=== PATIENT | male | born 1980 | race Caucasian/White ===

== ENCOUNTER 2020-04-26 11:23 | Emergency (ER) | payer OTHER ==
[2020-04-26] MEDS ORDERED: Sodium Chloride 0.9% 1000 ML 1,000 ML IV STA (11:32)
[2020-04-26] MEDS ORDERED: Sodium Chloride 0.9% 1000 ML 1,000 ML ONE (11:39)
--- NOTE | 2020-04-26 11:53 | ERPHSYRPT ---
- History of Present Illness Time Seen by Provider: 04/26/20 11:30 Source: patient Exam Limitations: no limitations Patient Subjective Stated Complaint: possible syncopal episode/ possible seizure activity Triage Nursing Assessment: pt to ED by EMS after possible seizure like activity and syncopal episode. pt states he was fasting for 12 hr and had blood drawn at routine check up. LOC immediately after blood draw. EMS reports that staff who witnessed episode stated that pt became bradycardic to 30s BPM. pt states he was not aware of episode during, but "came to" well after and has not been postdictal since. A&Ox4 on arrival. Physician History: Patient is a 39-year-old male presents to our ED via EMS for evaluation of syncope during blood draw. Patient was having a blood draw for routine work physical. Patient has been fasting for 12 hours. Patient states while the blood was being drawn he began to feel lightheaded and reportedly fainted. Staff felt that patient may have experienced a seizure. His heart rate decreased to 30. Patient states he is healthy. History of elevated triglycerides which he is managing with his diet. Patient denies other medication use. No history of seizures. No chest pain or shortness of breath. No nausea vomiting or diaphoresis. When patient awoke there was no postictal period. Are mild to moderate in intensity. No specific worsening or improving factors. Patient voices no other complaints or concerns at this time. Timing/Duration: today Severity: moderate Modifying Factors: Improves With: nothing Associated Symptoms: syncope, No nausea, No vomiting, No shortness of breath, No cough, No chest pain, No headaches, No loss of appetite Allergies/Adverse Reactions: No Known Drug Allergies Allergy (Unverified 04/26/20 11:37) Home Medications: No Reportable Medications [No Reported Medications] 04/26/20 [History] Hx Tetanus, Diphtheria Vaccination/Date Given: No Hx Influenza Vaccination/Date Given: No Immunizations Up to Date: No Travel Risk - International Travel Have you traveled outside of the country in past 3 weeks: No - Coronavirus Screening Are you exhibiting any of the following symptoms?: No Close contact with a COVID-19 positive Pt in past 14-21 Days: No - Review of Systems Constitutional: No Symptoms, No Fever, No Chills Eyes: No Symptoms Ears, Nose, & Throat: No Symptoms Respiratory: No Symptoms, No Cough, No Dyspnea Cardiac: No Symptoms, No Chest Pain, No Edema, No Syncope Abdominal/Gastrointestinal: No Symptoms, No Abdominal Pain, No Nausea, No Vomiting, No Diarrhea Genitourinary Symptoms: No Symptoms, No Dysuria Musculoskeletal: No Symptoms, No Back Pain, No Neck Pain Skin: No Symptoms, No Rash Neurological: No Symptoms, No Dizziness, No Focal Weakness, No Sensory Changes Psychological: No Symptoms Endocrine: No Symptoms Hematologic/Lymphatic: No Symptoms Immunological/Allergic: No Symptoms All Other Systems: Reviewed and Negative - Past Medical History Pertinent Past Medical History: No - Past Surgical History Past Surgical History: No - Social History Smoking Status: Never smoker Exposure to second hand smoke: No Drug Use: none Patient Lives Alone: No - Nursing Vital Signs Nursing Vital Signs: Initial Vital Signs Temperature 97.8 F 04/26/20 11:24 Pulse Rate 46 L 04/26/20 11:24 Respiratory Rate 16 04/26/20 11:24 Blood Pressure 104/54 04/26/20 11:24 O2 Sat by Pulse Oximetry 97 04/26/20 11:24 Pain Scale Pain Intensity 0 - Physical Exam General Appearance: no apparent distress, alert Eye Exam: PERRL/EOMI, eyes nml inspection Ears, Nose, Throat Exam: normal ENT inspection, TMs normal, pharynx normal, moist mucous membranes Neck Exam: normal inspection, non-tender, supple, full range of motion Respiratory Exam: normal breath sounds, lungs clear, No respiratory distress Cardiovascular Exam: regular rate/rhythm, normal heart sounds, normal peripheral pulses Gastrointestinal/Abdomen Exam: soft, normal bowel sounds, No tenderness, No mass Back Exam: normal inspection, normal range of motion, No CVA tenderness, No vertebral tenderness Extremity Exam: normal inspection, normal range of motion, pelvis stable Neurologic Exam: alert, oriented x 3, cooperative, normal mood/affect, nml cerebellar function, nml station & gait, sensation nml, No motor deficits Skin Exam: normal color, warm, dry, No rash Lymphatic Exam: No adenopathy SpO2 Interpretation: normal SpO2: 99 O2 Delivery: Room Air - Course Nursing assessment & vital signs reviewed: Yes EKG Interpreted by Me: RATE (44), Sinus David, NORMAL AXIS, NORMAL INTERVALS Ordered Tests: Active Orders 24 hr Category Date Time Status African History Professor STAT Care 04/26/20 11:33 Active EKG-ER Only STAT Care 04/26/20 11:32 Active IV Insertion STAT Care 04/26/20 11:32 Active Pulse Oximetry (ED) STAT Care 04/26/20 11:32 Active CBC W DIFF Stat Lab 04/26/20 11:32 Completed CMP Stat Lab 04/26/20 11:50 Completed ETHYL ALCOHOL Stat Lab 04/26/20 11:50 Completed Lactic Acid Stat Lab 04/26/20 11:53 Completed MAGNESIUM Stat Lab 04/26/20 11:50 Completed TROPONIN Q3H Lab 04/26/20 11:50 Completed TROPONIN Q3H Lab 04/26/20 14:45 Ordered TROPONIN Q3H Lab 04/26/20 17:45 Ordered TROPONIN Q3H Lab 04/26/20 20:45 Ordered TROPONIN Q3H Lab 04/26/20 23:45 Ordered UA W/RFX UR CULTURE Stat Lab 04/26/20 12:32 Completed Urine Triage Profile Stat Lab 04/26/20 12:32 Ordered Medication Summary Discontinued Medications Generic Name Dose Route Start Last Admin Trade Name Freq PRN Reason Stop Dose Admin Sodium Chloride 1,000 mls @ 999 mls/hr 04/26/20 11:32 04/26/20 12:43 Sodium Chloride 0.9% 1000 Ml IV 04/26/20 12:32 Infused .Q1H1M STA Infusion Sodium Chloride Confirm 04/26/20 11:39 Sodium Chloride 0.9% 1000 Ml Administered 04/26/20 11:40 Dose 1,000 mls @ ud .ROUTE .STK-MED ONE Lab/Rad Data: Laboratory Result Diagrams 04/26/20 11:32 04/26/20 11:50 Laboratory Results 04/26/20 04/26/20 04/26/20 Range/Units 12:32 11:53 11:50 WBC (4.0-10.5) K/mm3 RBC (4.1-5.6) M/mm3 Hgb (12.5-18.0) gm/dl Hct (42-50) % MCV (78-100) fl MCH (26-32) pg MCHC (32-36) g/dl RDW (11.5-14.0) % Plt Count (150-450) K/mm3 MPV (7.5-11.0) fl Gran % (36.0-66.0) % Eos # (Auto) (0-0.5) Absolute Lymphs (auto) (1.0-4.6) Absolute Monos (auto) (0.0-1.3) Lymphocytes % (24.0-44.0) % Monocytes % (0.0-12.0) % Eosinophils % (0.00-5.0) % Basophils % (0.0-0.4) % Absolute Granulocytes (1.4-6.9) Basophils # (0-0.4) Sodium (137-145) mmol/L Potassium (3.5-5.1) mmol/L Chloride (98-107) mmol/L Carbon Dioxide (22-30) mmol/L Anion Gap (5-15) MEQ/L BUN (9-20) mg/dL Creatinine (0.66-1.25) mg/dL Estimated GFR ML/MIN Glucose (74-106) mg/dL Lactic Acid 1.8 (0.4-2.0) Calcium (8.4-10.2) mg/dL Magnesium (1.6-2.3) mg/dL Total Bilirubin (0.2-1.3) mg/dL AST (17-59) U/L ALT (0-50) U/L Alkaline Phosphatase (38-126) U/L Troponin I < 0.012 (0.000-0.034) ng/mL Serum Total Protein (6.3-8.2) g/dL Albumin (3.5-5.0) g/dL Urine Color YELLOW (YELLOW) Urine Appearance SLIGHTLY CLOUDY (CLEAR) Urine pH 6.0 (5-6) Ur Specific Daisy 1.025 (1.005-1.025) Urine Protein 30 (Negative) Urine Ketones NEGATIVE (NEGATIVE) Urine Blood NEGATIVE (0-5) Narayan/ul Urine Nitrite NEGATIVE (NEGATIVE) Urine Bilirubin NEGATIVE (NEGATIVE) Urine Urobilinogen 2 (0-1) mg/dL Ur Leukocyte Esterase NEGATIVE (NEGATIVE) Urine WBC (Auto) 0-2 (0-5) /HPF Urine RBC (Auto) NONE (0-2) /HPF U Epithel Cells (Auto) NONE (FEW) /HPF Urine Bacteria (Auto) NONE (NEGATIVE) /HPF Urine Mucus (Auto) SLIGHT (NEGATIVE) /HPF Urine Culture Reflexed NO (NO) Urine Glucose NEGATIVE (NEGATIVE) mg/dL Ethyl Alcohol (0-10) mg/dL 04/26/20 04/26/20 Range/Units 11:50 11:32 WBC 5.8 (4.0-10.5) K/mm3 RBC 4.37 (4.1-5.6) M/mm3 Hgb 13.8 (12.5-18.0) gm/dl Hct 40.7 L (42-50) % MCV 93.1 (78-100) fl MCH 31.6 (26-32) pg MCHC 33.9 (32-36) g/dl RDW 12.6 (11.5-14.0) % Plt Count 183 (150-450) K/mm3 MPV 9.8 (7.5-11.0) fl Gran % 62.2 (36.0-66.0) % Eos # (Auto) 0.09 (0-0.5) Absolute Lymphs (auto) 1.74 (1.0-4.6) Absolute Monos (auto) 0.36 (0.0-1.3) Lymphocytes % 29.9 (24.0-44.0) % Monocytes % 6.2 (0.0-12.0) % Eosinophils % 1.5 (0.00-5.0) % Basophils % 0.2 (0.0-0.4) % Absolute Granulocytes 3.61 (1.4-6.9) Basophils # 0.01 (0-0.4) Sodium 138 (137-145) mmol/L Potassium 4.0 (3.5-5.1) mmol/L Chloride 106 (98-107) mmol/L Carbon Dioxide 25 (22-30) mmol/L Anion Gap 10.9 (5-15) MEQ/L BUN 19 (9-20) mg/dL Creatinine 0.91 (0.66-1.25) mg/dL Estimated GFR > 60.0 ML/MIN Glucose 115 H (74-106) mg/dL Lactic Acid (0.4-2.0) Calcium 8.8 (8.4-10.2) mg/dL Magnesium 2.1 (1.6-2.3) mg/dL Total Bilirubin 0.60 (0.2-1.3) mg/dL AST 27 (17-59) U/L ALT 32 (0-50) U/L Alkaline Phosphatase 39 (38-126) U/L Troponin I (0.000-0.034) ng/mL Serum Total Protein 7.0 (6.3-8.2) g/dL Albumin 4.1 (3.5-5.0) g/dL Urine Color (YELLOW) Urine Appearance (CLEAR) Urine pH (5-6) Ur Specific Daisy (1.005-1.025) Urine Protein (Negative) Urine Ketones (NEGATIVE) Urine Blood (0-5) Narayan/ul Urine Nitrite (NEGATIVE) Urine Bilirubin (NEGATIVE) Urine Urobilinogen (0-1) mg/dL Ur Leukocyte Esterase (NEGATIVE) Urine WBC (Auto) (0-5) /HPF Urine RBC (Auto) (0-2) /HPF U Epithel Cells (Auto) (FEW) /HPF Urine Bacteria (Auto) (NEGATIVE) /HPF Urine Mucus (Auto) (NEGATIVE) /HPF Urine Culture Reflexed (NO) Urine Glucose (NEGATIVE) mg/dL Ethyl Alcohol < 10 (0-10) mg/dL - Progress Progress: improved Progress Note: 04/26/20 15:24 Patient reassessed. Repeat neuro exam within normal limits he is well. Patient asymptomatic. Patient ambulated in our ED. Vitals remained within normal limits. Heart rate was at 78. No dizziness. No chest pain or shortness of breath. No weakness. No numbness or tingling. Troponin negative x2. Patient states he is ready for discharge. 04/26/20 15:25 Counseled pt/family regarding: lab results, diagnosis, need for follow-up, rad results - Departure Departure Disposition: Home Clinical Impression: Vasovagal syncope Condition: Stable Critical Care Time: No Referrals: BELA REINA NP [Primary Care Provider] - Additional Instructions: Discharge/Care Plan BINU HERRERA was seen on 04/26/20 in the Emergency Room. The patient was counseled regarding Diagnosis,Lab results, Imaging studies, need for follow up and when to return to the Emergency Room. Prescriptions given: Discharge Note I have spoken with the patient and/or caregivers. I have explained the patient's condition, diagnosis and treatment plan based on the information available to me at this time. I have answered the patient's and/or caregiver's questions and addressed any concerns. The patient and/or caregivers have as good understanding of the patient's diagnosis, condition and treatment plan as can be expected at this point. The vital signs have been stable. The patient's condition is stable and appropriate for discharge from the emergency department. The patient will pursue further outpatient evaluation with the primary care physician or other designated or consulting physician as outlined in the discharge instructions. The patient and/or caregivers are agreeable to this plan of care and follow-up instructions have been explained in detail. The patient and/or caregivers have received these instruction. The patient/and or caregivers are aware that any significant change in condition or worsening of symptoms should prompt an immediate return to this or the closest emergency department or call 911.
[2020-04-26 11:57] LABS: Absolute Neutrophil Ct (ANC) 3.61 (1.4-6.9); BASOPHIL % 0.2 % (0.0-0.4); Basophil (Absolute #) 0.01 (0-0.4); Eosinophil % 1.5 % (0.00-5.0); Eosinophil (Absolute #) 0.09 (0-0.5); Hematocrit 40.7 % (42-50); Hemoglobin 13.8 gm/dl (12.5-18.0); Lymphocyte (Absolute #) 1.74 (1.0-4.6); Lymphocytes % 29.9 % (24.0-44.0); Mean Cell Volume 93.1 fl (78-100); Mean Corpuscular Hemoglobin 31.6 pg (26-32); Mean Corpuscular Hgb Concent. 33.9 g/dl (32-36); Mean Platelet Volume 9.8 fl (7.5-11.0); Monocyte (Absolute #) 0.36 (0.0-1.3); Monocytes % 6.2 % (0.0-12.0); Neutrophil % 62.2 % (36.0-66.0); Platelet Count 183 K/mm3 (150-450); Red Blood Count 4.37 M/mm3 (4.1-5.6); Red Cell Distribution Width 12.6 % (11.5-14.0); White Blood Count 5.8 K/mm3 (4.0-10.5)
[2020-04-26 12:18] LABS: ALBUMIN 4.1 g/dL (3.5-5.0); ALKALINE PHOSPHATASE 39 U/L (38-126); ANION GAP 10.9 MEQ/L (5-15); BLOOD UREA NITROGEN 19 mg/dL (9-20); CHLORIDE 106 mmol/L (98-107); Calcium 8.8 mg/dL (8.4-10.2); Carbon Dioxide 25 mmol/L (22-30); Creatinine 1 0.91 mg/dL (0.66-1.25); EST GLOMERULAR FILTRATION RATE > 60.0 ML/MIN; ETHYL ALCOHOL < 10 mg/dL (0-10); Glucose 115 mg/dL (74-106); MAGNESIUM 2.1 mg/dL (1.6-2.3); SGOT/AST 27 U/L (17-59); SGPT/ALT 32 U/L (0-50); SODIUM 138 mmol/L (137-145)
[2020-04-26 13:13] LABS: Appearance SLIGHTLY CLOUDY (CLEAR); Bilirubin NEGATIVE (NEGATIVE); Blood NEGATIVE Ery/ul (0-5); Glucose NEGATIVE (NEGATIVE); Ketones NEGATIVE (NEGATIVE); Leukocyte Esterase NEGATIVE (NEGATIVE); Mucus SLIGHT /HPF (NEGATIVE); Nitrite NEGATIVE (NEGATIVE); Protein,Urine Dip 30 (Negative); Specific Gravity 1.025 (1.005-1.025); Urobilinogen 2 mg/dL (0-1); WBC 0-2 /HPF (0-5)
[2020-04-26 15:34] VITALS: BP 104/54; PULSE 68; O2SAT 96
[2020-04-26 17:55] LABS: Amphetamine,Urine NEGATIVE (NEGATIVE); Barbiturate,Urine NEGATIVE (NEGATIVE); Benzodiazepine,Urine NEGATIVE (NEGATIVE); Cocaine,Urine NEGATIVE (NEGATIVE); Methadone,Urine NEGATIVE (NEGATIVE); Opiate,Urine NEGATIVE (NEGATIVE); PCP,Urine NEGATIVE (NEGATIVE); THC,Urine NEGATIVE (NEGATIVE)
== END 2020-04-26 15:37 | disposition home or self-care (01) ==
LOC: ED 11:23
DX: R55 Syncope and collapse (principal)
CPT/HCPCS: 36000; 36415; 80053; 80307; 81001; 83605; 83735; 84484; 85025; 93005; 93041; 94760; 96360; 99284; G0480

== ENCOUNTER 2021-09-24 17:59 | Emergency (ER) | payer OTHER ==
[2021-09-24] MEDS ORDERED: CEFAZOLIN 2 GM-D5W BAG** 2 GM/50 ML ML IV STA (18:04)
[2021-09-24 18:08] VITALS: O2SAT 98
--- NOTE | 2021-09-24 18:18 | ERPHSYRPT ---
- History of Present Illness Source: patient, EMS Exam Limitations: no limitations Patient Subjective Stated Complaint: Pt states "I was stepping off of a mower and my shoes slipped and I put my hand out and cut it on a tool box." Triage Nursing Assessment: Pt presented alert and oriented X 3, skin pwd. Pt able to speak in clear full sentences pt has laceration noted to right hand. bleeding controlled. Physician History: 41 yo wm fell in barn cutting his R palm on a tool box on the floor. Pt is R- handed and denies other injuries. Tetanus is UTD. Other injuries are denied at this time.Pt received 100mcg IV Fentanyl per EMS. Occurred: just prior to arrival Method of Injury: fell Quality: constant Severity of Pain-Max: moderate Severity of Pain-Current: mild Extremities Pain Location: hand: right Modifying Factors: Improves With: movement Associated Symptoms: none Allergies/Adverse Reactions: No Known Drug Allergies Allergy (Verified 09/24/21 18:08) Home Medications: No Reportable Medications [No Reported Medications] 04/26/20 [History] Hx Tetanus, Diphtheria Vaccination/Date Given: Yes Hx Influenza Vaccination/Date Given: No Hx Pneumococcal Vaccination/Date Given: No Immunizations Up to Date: Yes Travel Risk - International Travel Have you traveled outside of the country in past 3 weeks: No - Coronavirus Screening Are you exhibiting any of the following symptoms?: No Close contact with a COVID-19 positive Pt in past 14-21 Days: No - Vaccine Status Have you recieved a Covid-19 vaccination: No - Review of Systems Constitutional: No Symptoms Eyes: No Symptoms Ears, Nose, & Throat: No Symptoms Respiratory: No Symptoms Cardiac: No Symptoms Abdominal/Gastrointestinal: No Symptoms Genitourinary Symptoms: No Symptoms Skin: No Symptoms Neurological: No Symptoms Psychological: No Symptoms Endocrine: No Symptoms Hematologic/Lymphatic: No Symptoms Immunological/Allergic: No Symptoms - Past Medical History Pertinent Past Medical History: No - Past Surgical History Past Surgical History: Yes Other Surgical History: left hand - Social History Smoking Status: Never smoker Exposure to second hand smoke: No Drug Use: none Patient Lives Alone: No Significant Family History: no pertinent family hx - Nursing Vital Signs Nursing Vital Signs: Initial Vital Signs Temperature 97.6 F 09/24/21 18:00 Pulse Rate 54 L 09/24/21 18:00 Respiratory Rate 20 09/24/21 18:00 Blood Pressure 102/76 09/24/21 18:00 O2 Sat by Pulse Oximetry 98 09/24/21 18:00 Pain Scale Pain Intensity 5 Mild bradycardia - Physical Exam General Appearance: no apparent distress Eyes, Ears, Nose, Throat Exam: normal ENT inspection, TMs normal, pharynx normal, moist mucous membranes Neck Exam: normal inspection, non-tender (No C-spine TTP), supple, full range of motion, No Brudzinski, No Kernig's, No meningismus Cardiovascular/Respiratory Exam: chest non-tender, normal breath sounds, heart sounds normal (Mildly bradycardic), No gallop, No murmur, No rales Abdominal Exam: non-tender, soft, no organomegaly Back Exam: normal inspection, normal range of motion, No CVA tenderness Shoulder Exam: normal inspection Elbow/Forearm Exam: normal inspection Wrist Exam: bone tenderness (R wrist TTP) Hand Exam: laceration (Large 4.5cm deep laceration parallel to axis of hand which runs from proximal hand to distal wrist/Good hemostasis/Good radial pulse, distal sensation, and capillary return/Moves all 4 digits wo difficulty) DTR - Upper Extremity Exam: bicep (R): 2+, bicep (L): 2+ Neuro/Tendon Exam: normal sensation, normal motor functions, normal tendon functions, responds to pain, no evidence tendon injury, No motor deficit, No sensory deficit Mental Status Exam: alert, oriented x 3, cooperative Skin Exam: normal color, warm, dry SpO2 Interpretation: normal SpO2: 98 O2 Delivery: Room Air - Course Nursing assessment & vital signs reviewed: Yes - Radiology Exams Wrist X-ray Interpretation: Interpreted by me (R wrist neg for fracture) Ordered Tests: Active Orders 24 hr Category Date Time Status WRIST (MIN 3 VIEWS) Stat Exams 09/24/21 18:50 Taken Medication Summary Discontinued Medications Generic Name Dose Route Start Last Admin Trade Name Freq PRN Reason Stop Dose Admin Cefazolin Sodium/Dextrose 2 gm in 50 mls @ 100 mls/hr 09/24/21 18:04 09/24/21 18:59 Cefazolin 2 Gm-D5w Bag IV 09/24/21 18:33 Infused STAT STA Infusion - Progress Progress: improved Progress Note: 09/24/21 18:20 2gms IV Ancef 09/24/21 19:02 Dr. Encinas not care coordination manager and unable to accept pt Pt accepted by Dr. Carrillo at [facility]/Pt to [facility] Wound dressed wet to dry Counseled pt/family regarding: diagnosis, need for follow-up, rad results - Departure Departure Disposition: Transfer Clinical Impression: Hand laceration Condition: Stable Critical Care Time: No Instructions: Wound Care (DC) Additional Instructions: [facility] Nothing to eat/drink in route
[2021-09-24] MEDS ORDERED: Hydromorphone 1 mg/ml Injection IV ONE (19:31)
[2021-09-24] MEDS ORDERED: Zofran 4 MG/2 ML VIAL IV ONE (19:32)
[2021-09-24] MEDS ORDERED: Zofran 4 MG/2 ML VIAL ONE (19:47)
[2021-09-24] MEDS ORDERED: Hydromorphone 1 mg/ml Injection ONE (19:47)
[2021-09-24 20:07] VITALS: BP 120/70; PULSE 72
--- NOTE | 2021-09-24 20:56 | XRAY ---
Indication: Anterior laceration following fall. Comparison: None 3 view right wrist demonstrates anterior soft tissue swelling/laceration with overlying bandage material. No other bony, articular, or soft tissue abnormalities.
== END 2021-09-24 20:07 | disposition short-term general hospital (02) ==
LOC: ED 17:59
DX: S61.411A Laceration without foreign body of right hand, initial encounter (principal); W01.118A Fall on same level from slipping, tripping and stumbling with subsequent striking against other sharp object, initial encounter; Y92.71 Barn as the place of occurrence of the external cause; M79.641 Pain in right hand; Z28.310 Unvaccinated for COVID-19
CPT/HCPCS: 73110; 96365; 96374; 96375; 99285; J0690; J1170; J2405

== ENCOUNTER 2024-08-23 08:13 | Emergency (ER) | payer OTHER ==
--- NOTE | 2024-08-23 08:16 | ERPHSYRPT ---
- History of Present Illness Time Seen by Provider: 08/23/24 08:16 Source: patient Exam Limitations: no limitations Physician History: This is a right handed 44-year-old white male patient who presents to the emergency department by private vehicle after using a drill which "got away from me" and caused a 3 cm skin laceration palmar aspect left hand patient's tetanus status is up-to-date having received tetanus injection approximately 3 years ago. He has full function of his left hand and digits. Patient already has had surgery on the left hand index and middle finger distally in the past. This has left him with chronic numbness at the tip of these 2 fingers. The numbness has not worsened or changed after this injury. Timing/Duration: today Quality: painful Severity: mild Location: hands (Left hand palmar aspect) Associated Symptoms: denies symptoms Allergies/Adverse Reactions: No Known Drug Allergies Allergy (Verified 09/24/21 18:08) Home Medications: No Reportable Medications [No Reported Medications] 04/26/20 [History] Hx Tetanus, Diphtheria Vaccination/Date Given: Yes Hx Influenza Vaccination/Date Given: No Hx Pneumococcal Vaccination/Date Given: No Travel Risk - International Travel Have you traveled outside of the country in past 3 weeks: No - Emerging Infectious Disease Are you exhibiting symptoms associated with any current EIDs: No - Review of Systems Constitutional: No Symptoms Eyes: No Symptoms Ears, Nose, & Throat: No Symptoms Respiratory: No Symptoms Cardiac: No Symptoms Abdominal/Gastrointestinal: No Symptoms Genitourinary Symptoms: No Symptoms Musculoskeletal: No Symptoms Skin: Other (3 cm laceration palmar aspect left hand) Neurological: No Symptoms Psychological: No Symptoms Endocrine: No Symptoms Hematologic/Lymphatic: No Symptoms Immunological/Allergic: No Symptoms All Other Systems: Reviewed and Negative - Past Medical History Pertinent Past Medical History: Yes Neurological History: No Pertinent History ENT History: No Pertinent History Cardiac History: No Pertinent History Respiratory History: No Pertinent History Endocrine Medical History: No Pertinent History Musculoskeletal History: No Pertinent History GI Medical History: No Pertinent History History: No Pertinent History Psycho-Social History: No Pertinent History Male Reproductive Disorders: No Pertinent History - Past Surgical History Past Surgical History: Yes Other Surgical History: left hand Significant Family History: no pertinent family hx - Social History Smoking Status: Never smoker Exposure to second hand smoke: No Drug Use: none Patient Lives Alone: No - Nursing Vital Signs Nursing Vital Signs: Initial Vital Signs Temperature 98.4 F 08/23/24 08:14 Pulse Rate 85 08/23/24 08:14 Respiratory Rate 18 08/23/24 08:14 Blood Pressure 144/94 08/23/24 08:14 O2 Sat by Pulse Oximetry 97 08/23/24 08:14 Pain Scale Pain Intensity 4 - Physical Exam General Appearance: no apparent distress, alert Eye Exam: PERRL/EOMI, eyes nml inspection Ears, Nose, Throat Exam: normal ENT inspection, moist mucous membranes Neck Exam: normal inspection, non-tender, supple, full range of motion Respiratory Exam: airway intact, No chest tenderness, No respiratory distress Gastrointestinal/Abdomen Exam: tenderness Rectal Exam: not done Back Exam: normal inspection, normal range of motion, No CVA tenderness, No vertebral tenderness Extremity Exam: normal range of motion, pelvis stable, lacerations (3 cm skin laceration palmar aspect left hand), other (No foreign body and no active bleeding) Neurologic Exam: alert, oriented x 3, cooperative, litigation coordinator II-XII nml as tested, normal mood/affect, nml cerebellar function, nml station & gait, sensation nml Skin Exam: laceration (Skin laceration as above) Lymphatic Exam: No adenopathy SpO2 Interpretation: normal O2 Delivery: Room Air Procedures - Laceration/Wound Repair Left Volar Hand Time of Procedure: 08:35 Wound Location: hand (Palmar aspect) Wound Length (cm): 3 Wound's Depth, Shape: superficial, linear Wound Explored: clean (Wound explored to the base in a bloodless field. No foreign body noted.) Irrigated: Yes Hibiclens Prep: Yes Anesthesia: 1% Lidocaine Volume Anesthetic (ccs): 5 Wound Repaired With: sutures Suture Size/Type: 3-0, ethilon Number of Sutures: 5 Layer Closure?: No - Course Nursing assessment & vital signs reviewed: Yes - Progress Progress: improved Progress Note: 08/23/24 08:25 My medical decision making and the assignment of low complexity to this patient's medical issue today is based on review of the patient's past medical history, review the patient's medication list, review of patient drug allergy list, history present illness and physical findings on examination. The workup of this patient does not require any laboratory radiographic studies. Differential diagnosis includes but is not limited to skin abrasion, contusion, skin laceration Counseled pt/family regarding: diagnosis, need for follow-up Medical Desision Making - Diagnostic Testing Diagnostic test were ordered, analyzed, and reviewed by me: No - Risk of complications Minimal Risk: Minimal risk of morbidity - Departure Departure Disposition: Home Clinical Impression: Laceration of skin of left hand Condition: Stable Critical Care Time: No Additional Instructions: Keep the current pressure dressing in place until the evening of 08/24/2024. At that time you may remove the pressure dressing and allow soapy water to rinse off the laceration repair site. Blot dry use a inspector hairspring truing. Once dried, apply thin layer of antibiotic ointment of choice daily. Cover with a bandage. Sut ure removal in 7 to 10 days.
[2024-08-23 08:33] VITALS: RESP 18; TEMP 98.4
[2024-08-23] MEDS ORDERED: BACIGUENT PACKET ONE (08:49)
[2024-08-23] MEDS: BACIGUENT PACKET TP ONE (08:50)
[2024-08-23 09:05] VITALS: BP 154/93; PULSE 80; O2SAT 95
== END 2024-08-23 09:01 | disposition home or self-care (01) ==
LOC: ED 08:13
DX: S61.412A Laceration without foreign body of left hand, initial encounter (principal); W29.8XXA Contact with other powered hand tools and household machinery, initial encounter
CPT/HCPCS: 12002; 99282; 99283; A9270-GY